=== PATIENT | male | born 1975 | race Caucasian/White ===

== ENCOUNTER → 2016-11-13 | Outpatient (CLI) | payer OTHER ==
[~2016-11-13] MED LIST: ALBUTEROL17 GM INH; ANUSOL-HC21 GM; CHOLESTROL MED; DICLOFENAC PO; DICLOFENAC SODI50 MG PO; FLEXERIL PO; FLEXERIL10 M1; FLEXERIL10 MG PO; FLONASE16 GM; GLUCOTROL PO; HEARTBURN TREAT15 MG; HYDROMET SYRUP480 ML PO; IBUPROFEN PO; IBUPROFEN800 MG; LANTUS100 U/ML; LEVOTHROID150 MCG PO; LISINOPRIL PO; METFORMIN PO; MOBIC PO; MOTRIN600 MG PO; NAPROXEN PO; NEURONTIN PO; NEURONTIN300 MG PO; PERCOCET 5/321 UDTAB PO; PRINIVIL20 M1 PO; STOMACH MED; SYNTHROID PO; ZANTAC150 MG; ZITHROMAX; ZITHROMAX PO
--- NOTE | ~2016-11-13 | CT57 ---
[facility] A Service of [facility] RADIOLOGY TEXT RESULTS PATIENT: ULYSSES JOHNSON LOCATION: [facility] : 75 UNIT #: [id number] AGE: [address]: Tonya Thornton SEX: M ORDER DR: [id number] [facility] [address] [place], [place] [address] [id number] O MR#: [id number] Acc #: [id number] NAME: ULYSSES JOHNSON. : 1975 SEX: M STUDY DATE/TIME: 11/13/2016 13:57 UNIT: [facility] ROOM: STUDY DESCRIPTION: CT Chest Wo Cont Attending Physician: Tonya Thornton A.P.R.N. Referring Physician: Tonya Thornton A.P.R.N. Ordering Physician: Tonya Thornton A.P.R.N. Primary Care Physician: Paul Hernández M.D. MEDICAL IMAGING REPORT This report is preliminary unless electronic signature is present EXAM Chest CT without contrast. HISTORY No pleural effusions since May 2016. Left-sided abdominal discomfort since then. TECHNIQUE Axial images were obtained through the chest without contrast and evaluated at lung and mediastinal windows. This CT exam was performed with one or more of the following radiation dose reduction techniques: automatic exposure control, adjustment of mA and/or kV according to patient size, and iterative reconstruction. COMPARISON STUDIES Comparison scan from 08/08/2016. FINDINGS Chest images at mediastinal window show no enlarged mediastinal or hilar lymph nodes. There is no evidence of pleural fluid or pericardial fluid. Diffuse fatty infiltration of the liver is noted. Lung window imaging shows both lungs to be clear. No suspicious masses or infiltrates are seen. IMPRESSION Left pleural fluid has resolved. Negative chest CT. Fatty liver again noted. Dictated by... [facility] A Service [facility] RADIOLOGY TEXT RESULTS PATIENT: ULYSSES JOHNSON LOCATION: [facility] : 75 UNIT #: [id number] AGE: [address]: Tonya Thornton SEX: M ORDER DR: Jeferson Perea M.D. THIS IS AN ELECTRONICALLY VERIFIED REPORT Jeferson Perea M.D. at 11/14/2016 1:05 PM AARTI/josue TD: 11/14/2016 09:15 JOB #: [id number] MEDICAL IMAGING REPORT Page 1 of 1 COPY
== END | disposition home or self-care (01) ==
LOC: CCAT 12:59
DX: J44.9 Chronic obstructive pulmonary disease, unspecified (principal); J90 Pleural effusion, not elsewhere classified; K76.0 Fatty (change of) liver, not elsewhere classified
CPT/HCPCS: 71250